=== PATIENT | male | born 1980 | race African-American/Black ===

== ENCOUNTER 2017-06-17 18:53 | Emergency (ER) | payer OTHER ==
[~2017-06-17] VITALS: Ht 188 cm; Wt 98.0 kg
[2017-06-17 19:20] VITALS: BP 138/94
[2017-06-17] MEDS ORDERED: HYDROCHLOROTH12.5 MG ORAL (19:28)
[2017-06-17 19:52] VITALS: BP 138/94
--- NOTE | 2017-06-17 21:32 | Emergency Room Report ---
History of Present Illness General Chief Complaint: General Complaint Source: Patient Present Illness HPI The patient is a 37 old male history of hypertension presenting for refill of medication. He states that he ran out of his hydrochlorothiazide 1 month ago. he is unsure of the dosage. He has not been recording his blood pressure at home. He states that he was initially feeling dizzy this morning but symptoms have resolved. He denies any other symptoms including nausea, vomiting, fever, chills, chest pain, shortness of breath, abdominal pain Allergies: Coded Allergies: No Known Allergies (Unverified , 06/17/17) Patient History Past Medical History: see triage record, HTN Pertinent Family History: none Reviewed Nursing Documentation: PMH: Agreed, PSxH: Agreed Nursing Documentation-PMH Past Medical History: No History, Except For Hx Hypertension: Yes Review of Systems All Other Systems: negative except mentioned in HPI Physical Exam Vital Signs Date Time Temp Pulse Resp B/P (MAP) Pulse Ox O2 Delivery O2 Flow Rate FiO2 06/17/17 19:07 98.2 86 16 138/94 98 Room Air Sp02 EP Interpretation: reviewed, normal General Appearance: no apparent distress, alert, GCS 15, non-toxic Head: normocephalic, atraumatic Eyes: bilateral eye normal inspection, bilateral eye PERRL ENT: hearing grossly normal, normal pharynx, no angioedema, normal voice Neck: full range of motion, supple/symm/no masses Respiratory: chest non-tender, lungs clear, normal breath sounds, speaking full sentences Cardiovascular #1: regular rate, rhythm, no edema Musculoskeletal: back normal, gait/station normal, normal range of motion, non- tender Neurologic: alert, oriented x3, responsive, motor strength/tone normal, sensory intact, speech normal Psychiatric: judgement/insight normal, memory normal, mood/affect normal, no suicidal/homicidal ideation Skin: normal color, no rash, warm/dry, well hydrated Medical Decision Making PA Attestation Dr. Pedro is my supervising physician. Patient management was discussed with my supervising physician Diagnostic Impression: Primary Impression: Hypertension Qualified Codes: I10 - Essential (primary) hypertension ER Course The patient is a 37 old male history of hypertension presenting for refill of medication DDx considered but not limited to: HTN urgency/emergency, ACS, hypotension PE: BP 138/94 NAD RRR Lungs CTA bilat The patient is given refill of prescription and needs to followup with his primary doctor. He was told to keep the blood pressure Journal at home ER precautions given Last Vital Signs Date Time Temp Pulse Resp B/P (MAP) Pulse Ox O2 Delivery O2 Flow Rate FiO2 06/17/17 19:07 98.2 86 16 138/94 98 Room Air Status: improved Disposition: HOME, SELF-CARE Condition: Improved Scripts Hydrochlorothiazide* (HYDROCHLOROTHIAZIDE*) 12.5 Mg Tablet 12.5 MG ORAL DAILY, #30 TAB Prov: LUZ LARSEN 06/17/17 Patient Instructions: Hypertension Additional Instructions: I discussed my findings with the patient. All questions and concerns have been answered. Treatment and medication compliance have been addressed. I advised the patient that they need to follow up with PMD in 3-5 days. Return to ED if symptoms worsen, new symptoms arise, or if needed for any reason. Patient verbalized understanding of discharge instructions. LUZ LARSEN Jun 17, 2017 21:32
== END 2017-06-17 20:00 | disposition home or self-care (01) ==
LOC: EMR 20:00
DX: I10 Essential (primary) hypertension (principal); Z76.0 Encounter for issue of repeat prescription
CPT/HCPCS: 99283

== ENCOUNTER 2019-01-24 17:13 | Emergency (ER) | payer OTHER ==
[~2019-01-24] VITALS: Ht 188 cm; Wt 95.3 kg
[~2019-01-24 17:13] MED LIST: HYDROCHLOROTH12.5 MG ORAL
--- NOTE | 2019-01-24 17:25 | NUR ---
ED Nurse Note: pt walked in to ER from home due to Lt wrist pain / for 3 weeks. pt aao x4 and ambulatory. skin clean and intact. Swelling noted on Lt wrist and warm to touch.
[2019-01-24 17:27] VITALS: BP 143/104
--- NOTE | 2019-01-24 18:04 | Emergency Room Report ---
History of Present Illness General Chief Complaint: Pain Source: Patient Present Illness HPI 39-year-old male with no significant past medical history complaining of 3 days of pain and swelling left wrist after he tried to help his dad to get up and he twisted his wrist. Patient also had a ganglion cyst removed from the same wrist 3 years ago. Denies pain radiation however is rating the pain 10 out of 10, without any tingling or numbness. Has taken ibuprofen and Tylenol without relief. 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 Patient has full range of motion and sensation is intact. Denies all other injuries, chest pain, shortness of breath, palpitation, and all other associated symptoms Allergies: Coded Allergies: No Known Allergies (Unverified , 06/17/17) Patient History Past Medical History: see triage record Past Surgical History: unable to obtain Pertinent Family History: none Immunizations: UTD Reviewed Nursing Documentation: PMH: Agreed; PSxH: Agreed Nursing Documentation-PMH Past Medical History: No History, Except For Hx Hypertension: Yes Review of Systems All Other Systems: negative except mentioned in HPI Physical Exam Vital Signs Date Time Temp Pulse Resp B/P (MAP) Pulse Ox O2 Delivery O2 Flow Rate FiO2 01/24/19 17:20 97.5 65 18 143/104 (117) 98 Sp02 EP Interpretation: reviewed, normal General Appearance: normal inspection, well appearing, no apparent distress Head: normocephalic, atraumatic Eyes: bilateral eye normal inspection, bilateral eye PERRL ENT: normal ENT inspection, hearing grossly normal, normal pharynx Neck: full range of motion, supple Respiratory: normal inspection, chest non-tender, lungs clear, no rhonchi, no wheezing Cardiovascular #1: normal inspection, normal peripheral pulses, no edema, no murmur, normal capillary refill Cardiovascular #2: 2+ radial (R), 2+ radial (L) Gastrointestinal: normal inspection, soft Musculoskeletal: back normal, digits/nails normal, gait/station normal, swelling - Left wrist also surgical site noninfected Neurologic: normal inspection, alert, oriented x3, responsive Psychiatric: normal inspection, judgement/insight normal, memory normal Skin: normal inspection, normal color, no rash, other - No ecchymosis Lymphatic: normal inspection, no adenopathy Medical Decision Making PA Attestation All my diagnosis and treatment plans were reviewed ad discussed with my supervising physician Dr. Waller Diagnostic Impression: Primary Impression: Left wrist sprain Additional Impression: Swelling of surgical site ER Course 39-year-old male with no significant past medical history complaining of 3 days of pain and swelling left wrist after he tried to help his dad to get up and he twisted his wrist. Patient also had a ganglion cyst removed from the same wrist 3 years ago. Denies pain radiation however is rating the pain 10 out of 10, without any tingling or numbness. Has taken ibuprofen and Tylenol without relief. 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 Patient has full range of motion and sensation is intact. Denies all other injuries, chest pain, shortness of breath, palpitation, and all other associated symptoms Ddx considered but are not limited to: Left wrist sprain, wrist fracture, wrist strain Vital signs: are WNL, pt. is afebrile H&PE are most consistent with: Left wrist sprain causing swelling at site of the surgery ORDERS: Left wrist x-ray, naproxen, Voltaren gel ED INTERVENTIONS: Jt wrap DISCHARGE: At this time pt. is stable for d/c to home. Will provide printed patient care instructions, and any necessary prescriptions. Care plan and follow up instructions have been discussed with the patient prior to discharge. Physical therapy advised follow-up with a primary care provider keep the Jt wrap on I advised the patient to purchase 1 of those wrist bands to prevent him from certain movements MRI may be needed to be requested by primary doctor Other X-Ray Diagnostic Results Other X-Ray Diagnostic Results : X-Ray ordered: Left wrist # of Views/Limited Vs Complete: 3 View Indication: Pain EP Interpretation: Yes PA Xray: Interpretation reviewed, by supervising MD, and agrees with findings. Interpretation: no dislocation, no soft tissue swelling, no fractures Impression: No acute disease Electronically Signed by: mago stover PA-C Last Vital Signs Date Time Temp Pulse Resp B/P (MAP) Pulse Ox O2 Delivery O2 Flow Rate FiO2 01/24/19 17:27 97.5 76 18 143/104 98 Disposition: HOME, SELF-CARE Condition: Stable Scripts Diclofenac Sodium (VOLTAREN) 100 Gm Gel..gram. 2 GM TP TID, #100 GM Prov: Mago Gilmore 01/24/19 Naproxen* (NAPROXEN*) 500 Mg Tablet 500 MG ORAL TWICE A DAY, #30 TAB Prov: Mago Gilmore 01/24/19 Patient Instructions: Wrist Sprain Additional Instructions: Follow-up with your primary doctor to general surgery due to the swelling at the site of the removal of your ganglion cyst avoid strenuous physical activity with the affected area Mago Gilmore Jan 24, 2019 18:04
[2019-01-24] MEDS ORDERED: NAPROXEN500 M2 ORAL (18:09)
[2019-01-24] MEDS ORDERED: VOLTAREN100 G1 TP (18:09)
[2019-01-24 18:28] VITALS: BP 131/82
--- NOTE | 2019-01-24 18:29 | NUR ---
ER DISCHARGE NOTE: Patient is cleared to be discharged per ERMD, pt is aox4, on room air, with stable vital signs. pt was given dc and prescription instructions, pt was able to verbalize understanding, pt id band removed without complications. pt is able to ambulate with steady gait. pt took all belongings.
--- NOTE | 2019-01-25 12:13 | Diagnostic Imaging Report ---
Clinical Indication:Left wrist pain Technique: 3 views of the left wrist Comparison: None Findings: No acute fractures. No dislocations. The joint spaces are preserved Impression: Negative
== END 2019-01-24 18:30 | disposition home or self-care (01) ==
LOC: EMR 18:30
DX: S63.502A Unspecified sprain of left wrist, initial encounter (principal); X58.XXXA Exposure to other specified factors, initial encounter; Y92.9 Unspecified place or not applicable; I10 Essential (primary) hypertension; R60.9 Edema, unspecified
CPT/HCPCS: 99283